=== PATIENT | female | born 1935 | race Caucasian/White ===

== ENCOUNTER 2023-01-03 12:38 | Inpatient (IN) | payer OTHER, MEDICARE ==
[~2023-01-03] VITALS: Ht 152.4 cm; Wt 31.4 kg
[2023-01-03 13:08] VITALS: PULSE 74; RESP 19; O2SAT 90
[2023-01-03] MEDS ORDERED: MORPHINE SULFATE 4 MG/ML SYR/VIAL IV ONE (14:15)
[2023-01-03] MEDS ORDERED: ONDANSETRON HCL 4 MG/2 ML VIAL IV ONE (14:15)
[2023-01-03] MEDS ORDERED: SODIUM CHLORIDE 0.9% 1,000 ML IVB ONE (14:15)
[2023-01-03] MEDS ORDERED: AZITHROMYCIN 500MG/ 250ML 250 ML IV ONE (14:30)
[2023-01-03] MEDS ORDERED: methylPREDNISolone SOD SUCC 40 MG/ML VL IV ONE (14:30)
[2023-01-03] MEDS ORDERED: ALBUTEROL SULF 2.5 MG/0.5ML(0.5%) NEB SOLN NEB ONE ×2 (14:30)
[2023-01-03] MEDS ORDERED: PANTOPRAZOLE 40 MG/10 ML VIAL INJ IV ONE (14:30)
[2023-01-03] MEDS ORDERED: IPRATROPIUM BROM 0.5 MG/2.5ML INH SOL NEB ONE ×2 (14:30)
[2023-01-03 15:21] LABS: Basophils # (auto) 0.1 10 ^3/uL (0-0.2); Basophils % (auto) 0.7 % (0.0-2.0); Eosinophils # (auto) 0.1 10 ^3/uL (0-0.8); Eosinophils % (auto) 1.1 % (0.0-7.0); Hematocrit 39.6 % (36.0-46.0); Hemoglobin 13.2 g/dL (12.2-16.2); Lymphocytes # (auto) 0.8 10 ^3/uL (0.4-5.4); Lymphocytes % (auto) 8.7 % (10.0-50.0); Mean Corpuscular Hemoglobin 31.9 pg (28.0-32.0); Mean Corpuscular Hgb Conc. 33.3 g/dL (32.0-36.0); Mean Corpuscular Volume 95.8 fL (80.0-100.0); Monocytes # (auto) 0.7 10 ^3/uL (0-1.3); Monocytes % (auto) 7.6 % (0.0-12.0); Neutrophils # (auto) 7.1 10 ^3/uL (1.6-8.6); Neutrophils % (auto) 81.9 % (37.0-80.0); Nucleated Red Blood Cells % 0.1 %; Red Blood Cells 4.13 10^6/uL (4.0-5.20); Red Cell Distribution Width 12.3 % (11.8-14.3); White Blood Cell 8.6 10^3/uL (4.4-10.8)
[2023-01-03 16:00] LABS: Potassium 4.8 mmol/L (3.5-5.1)
[2023-01-03 16:12] LABS: Albumin 2.8 g/dL (3.4-5.0); BUN/Creatinine Ratio 17.9 (10.0-20.0); Bilirubin, Total 0.4 mg/dL (0.2-1.0); Calcium 9.4 mg/dL (8.5-10.1); Magnesium 2.2 mg/dL (1.6-2.6); Total Protein 7.6 g/dL (6.4-8.2)
[2023-01-03 16:31] LABS: INR 1.04 (0.9-1.15); Partial Thromboplastin Time 26.5 SEC (24.5-34.5)
[2023-01-03] MEDS ORDERED: ACETAMINOPHEN 325 MG TAB PO PRN (17:15)
[2023-01-03] MEDS ORDERED: NITROGLYCERIN 0.4 MG SL TAB SL PRN (17:15)
[2023-01-03] MEDS ORDERED: HYDROcodone-ACET 5/325MG TAB PO PRN (17:15)
[2023-01-03] MEDS ORDERED: MORPHINE SULFATE INJ 2 MG/ml SYRG IV PRN (17:15)
[2023-01-03] MEDS ORDERED: DOCUSATE SOD 100 MG CAP PO PRN (17:15)
[2023-01-03] MEDS ORDERED: DEXTROSE (50%) 50ML SYRG IV PRN (17:15)
[2023-01-03] MEDS ORDERED: ONDANSETRON HCL 4 MG/2 ML VIAL IV PRN (17:15)
[2023-01-03] MEDS: SODIUM CHLORIDE 0.9% 1,000 ML IV SCH (17:15)
[2023-01-03] MEDS: ACCU-CHEK COMFORT CURVE STRIP VI SCH (22:08)
[2023-01-03] MEDS: InsuLIN REG 1unit/0.01ml Soln (100units/ml) SC SCH (22:17)
[2023-01-04 00:04] LABS: Urine Bacteria NONE SEEN /hpf (None Seen); Urine Blood 3+ /uL (Negative); Urine Specific Gravity 1.013 (1.001-1.035); Urine WBC 3 /hpf (0 - 5)
[2023-01-04 00:12] LABS: Alcohol, Urine < 3.0 mg/dL (0-10); Barbiturate Scree,Urine NEGATIVE (NEGATIVE); Benzodiazephine Screen, Urine NEGATIVE (NEGATIVE); Cannabinoid Screen, Urine NEGATIVE (NEGATIVE); Cocaine Screen, Urine NEGATIVE (NEGATIVE); Opiate Scree,Urine POSITIVE (NEGATIVE); Phencyclidine Screen, Urine NEGATIVE (NEGATIVE)
[2023-01-04 00:21] LABS: Amphetamine Screen, Urine NEGATIVE (NEGATIVE)
[2023-01-04 05:38] LABS: Basophils # (auto) 0 10 ^3/uL (0-0.2); Basophils % (auto) 0.1 % (0.0-2.0); Eosinophils # (auto) 0 10 ^3/uL (0-0.8); Hematocrit 30.2 % (36.0-46.0); Hemoglobin 10.2 g/dL (12.2-16.2); Lymphocytes # (auto) 0.7 10 ^3/uL (0.4-5.4); Lymphocytes % (auto) 7.4 % (10.0-50.0); Mean Corpuscular Hemoglobin 32.4 pg (28.0-32.0); Mean Corpuscular Hgb Conc. 33.9 g/dL (32.0-36.0); Mean Corpuscular Volume 95.7 fL (80.0-100.0); Monocytes # (auto) 0.3 10 ^3/uL (0-1.3); Monocytes % (auto) 3.2 % (0.0-12.0); Neutrophils # (auto) 8.6 10 ^3/uL (1.6-8.6); Neutrophils % (auto) 89.3 % (37.0-80.0); Red Blood Cells 3.16 10^6/uL (4.0-5.20); Red Cell Distribution Width 12.3 % (11.8-14.3); White Blood Cell 9.7 10^3/uL (4.4-10.8)
[2023-01-04 06:01] LABS: Albumin 2.5 g/dL (3.4-5.0); Calcium 8.5 mg/dL (8.5-10.1); Potassium 4.9 mmol/L (3.5-5.1)
[2023-01-04 06:05] LABS: BUN/Creatinine Ratio 18.2 (10.0-20.0); Bilirubin, Total 0.3 mg/dL (0.2-1.0)
[2023-01-04] MEDS: ACCU-CHEK COMFORT CURVE STRIP VI SCH ×4 (06:19→23:27)
[2023-01-04] MEDS: InsuLIN REG 1unit/0.01ml Soln (100units/ml) SC SCH ×4 (06:26→23:26)
[2023-01-04] MEDS: SODIUM CHLORIDE 0.9% 1,000 ML IV SCH (11:44)
[2023-01-04 22:34] VITALS: PULSE 79
[2023-01-04 23:39] VITALS: BP 167/56; PULSE 78; RESP 20; TEMP 97.4; O2SAT 97
[2023-01-04 23:45] VITALS: PULSE 80; RESP 20; O2SAT 98
[2023-01-05] VITALS (7 sets, daily range): BP systolic 141–168; BP diastolic 43–70; PULSE 70–91; RESP 16–20; TEMP 97–98.6; O2SAT 91–98
[2023-01-05] MEDS ORDERED: hydrALAZINE HCL 20 MG/ML VL IV ONE (00:30)
[2023-01-05] MEDS: SODIUM CHLORIDE 0.9% 1,000 ML IV SCH ×2 (02:35→21:27)
[2023-01-05] MEDS: ACCU-CHEK COMFORT CURVE STRIP VI SCH ×4 (06:17→22:18)
[2023-01-05] MEDS: InsuLIN REG 1unit/0.01ml Soln (100units/ml) SC SCH ×4 (06:17→22:24)
[2023-01-05] MEDS: MORPHINE SULFATE INJ 2 MG/ml SYRG IV PRN ×2 (08:17→16:30)
[2023-01-05] MEDS ORDERED: cefTRIAXone 1GM/50ML D5W 50 ML IV ONE (12:30)
[2023-01-05] MEDS: cloNIDine HCL 0.1 MG TAB PO PRN ×2 (16:29→22:18)
[2023-01-06 05:00] VITALS: BP 150/57; PULSE 82; RESP 18; TEMP 97.5; O2SAT 96
[2023-01-06] MEDS: ACCU-CHEK COMFORT CURVE STRIP VI SCH ×2 (06:38→11:48)
[2023-01-06] MEDS: InsuLIN REG 1unit/0.01ml Soln (100units/ml) SC SCH ×2 (06:39→11:30)
[2023-01-06 08:00] VITALS: BP 155/52; PULSE 70; RESP 16; O2SAT 100
[2023-01-06] MEDS ORDERED: cefTRIAXone 1GM/50ML D5W 50 ML IV SCH (09:00)
[2023-01-06] MEDS: SODIUM CHLORIDE 0.9% 1,000 ML IV SCH (11:48)
[2023-01-06 12:04] VITALS: BP 155/52; PULSE 70; RESP 16; TEMP 97.5; O2SAT 100
== END 2023-01-06 12:28 | disposition hospice, home (50) | DRG 535 ==
LOC: EDBD 12:38 → ER 12:38 → TELE 17:14 → TELE-EAST 01-04 22:27
PROVIDERS: ADMIT Family Medicine; ATTEND Family Medicine
DX: S72.001A Fracture of unspecified part of neck of right femur, initial encounter for closed fracture (principal); N17.0 Acute kidney failure with tubular necrosis; J44.1 Chronic obstructive pulmonary disease with (acute) exacerbation; N39.0 Urinary tract infection, site not specified; I10 Essential (primary) hypertension; E11.9 Type 2 diabetes mellitus without complications; F03.90 Unspecified dementia, unspecified severity, without behavioral disturbance, psychotic disturbance, mood disturbance, and anxiety; Z66 Do not resuscitate; Z20.822 Contact with and (suspected) exposure to COVID-19; W18.39XA Other fall on same level, initial encounter; Z85.3 Personal history of malignant neoplasm of breast; Z85.828 Personal history of other malignant neoplasm of skin; Y93.89 Activity, other specified; Y92.89 Other specified places as the place of occurrence of the external cause; Y99.8 Other external cause status
CPT/HCPCS: 36415; 36600; 70450; 71045; 72125; 73502; 73700; 78582; 80053; 80307; 81001; 82550; 82805; 82962; 83036; 83605; 83615; 83735; 83880; 84443; 84484; 85025; 85379; 85610; 85730; 86850; 86900; 86901; 87040; 87081; 87086; 87426; 93005; 93306; 94640; 96361; 96365; 96375; C9113; G0378; J0696; J1815; J2405